=== PATIENT | female | born 1995 | race Two or more races ===

== ENCOUNTER 2020-10-16 10:13 | Emergency (ER) | payer OTHER ==
[~2020-10-16] VITALS: Ht 162.6 cm; Wt 69.9 kg
[2020-10-16 11:16] LABS: Urine Bacteria NONE SEEN /hpf (None Seen); Urine Blood Negative /uL (Negative); Urine Specific Gravity 1.025 (1.001-1.035); Urine Sperm PRESENT /hpf (None Seen); Urine WBC 2 /hpf (0 - 5)
[2020-10-16 16:20] VITALS: BP 120/76
== END 2020-10-16 16:23 | disposition home or self-care (01) ==
LOC: EDBD 10:13 → ER 10:13
DX: R10.2 Pelvic and perineal pain (principal); Z90.89 Acquired absence of other organs
CPT/HCPCS: 76830; 76856; 81001; 81025

== ENCOUNTER 2020-12-18 20:15 | Emergency (ER) | payer OTHER ==
[~2020-12-18] VITALS: Ht 160 cm; Wt 60.3 kg
[2020-12-18 21:33] LABS: Urine Bacteria NONE SEEN /hpf (None Seen); Urine Blood Negative /uL (Negative); Urine Specific Gravity 1.023 (1.001-1.035); Urine WBC <1 /hpf (0 - 5)
[2020-12-18 21:52] LABS: Basophils # (auto) 0.1 10 ^3/uL (0-0.2); Basophils % (auto) 0.6 % (0.0-2.0); Eosinophils # (auto) 0.1 10 ^3/uL (0-0.8); Eosinophils % (auto) 0.9 % (0.0-7.0); Hemoglobin 14.6 g/dL (12.2-16.2); Lymphocytes # (auto) 3.4 10 ^3/uL (0.4-5.4); Lymphocytes % (auto) 26.4 % (10.0-50.0); Mean Corpuscular Hemoglobin 31.6 pg (28.0-32.0); Mean Corpuscular Hgb Conc. 34.7 g/dL (32.0-36.0); Monocytes # (auto) 1.1 10 ^3/uL (0-1.3); Monocytes % (auto) 8.3 % (0.0-12.0); Neutrophils # (auto) 8.1 10 ^3/uL (1.6-8.6); Neutrophils % (auto) 63.8 % (37.0-80.0); Red Blood Cells 4.62 10^6/uL (4.0-5.20); Red Cell Distribution Width 12.9 % (11.8-14.3); White Blood Cell 12.8 10^3/uL (4.4-10.8)
[2020-12-18 22:05] LABS: Calcium 9.3 mg/dL (8.5-10.1)
[2020-12-18 22:08] LABS: Albumin 4.2 g/dL (3.4-5.0); BUN/Creatinine Ratio 19.4; Magnesium 2.4 mg/dL (1.6-2.6)
[2020-12-18 22:21] LABS: Bilirubin, Total 0.5 mg/dL (0.2-1.0); Total Protein 8.5 g/dL (6.4-8.2)
[2020-12-19 02:30] VITALS: BP 98/56
== END 2020-12-19 03:46 | disposition home or self-care (01) ==
LOC: ER 20:19
DX: N83.202 Unspecified ovarian cyst, left side (principal); R10.2 Pelvic and perineal pain; K59.00 Constipation, unspecified; Z33.1 Pregnant state, incidental; Z87.440 Personal history of urinary (tract) infections
CPT/HCPCS: 36415; 74176; 76830; 76856; 80053; 81001; 81025; 82150; 83690; 83735; 84702; 85025

== ENCOUNTER 2020-12-21 13:36 | Emergency (ER) | payer OTHER ==
[~2020-12-21] VITALS: Ht 160 cm; Wt 54.4 kg
[2020-12-21 14:23] VITALS: BP 130/55
[2020-12-21 15:13] LABS: Urine WBC None Seen /hpf (0 - 5)
[2020-12-21 15:28] LABS: Urine Bacteria NONE SEEN /hpf (None Seen); Urine Blood Negative /uL (Negative); Urine Specific Gravity 1.026 (1.001-1.035)
== END 2020-12-21 15:23 | disposition home or self-care (01) ==
LOC: ER 13:36
DX: O26.891 Other specified pregnancy related conditions, first trimester (principal); N83.209 Unspecified ovarian cyst, unspecified side; Z87.440 Personal history of urinary (tract) infections; Z3A.01 Less than 8 weeks gestation of pregnancy
CPT/HCPCS: 36415; 81001; 84702

== ENCOUNTER 2021-01-08 08:32 | Emergency (ER) | payer OTHER ==
[~2021-01-08] VITALS: Ht 162.6 cm; Wt 73.9 kg
[2021-01-08 09:19] VITALS: BP 107/56
[2021-01-08 09:29] LABS: Basophils # (auto) 0 10 ^3/uL (0-0.2); Basophils % (auto) 0.4 % (0.0-2.0); Eosinophils # (auto) 0 10 ^3/uL (0-0.8); Eosinophils % (auto) 0.4 % (0.0-7.0); Hematocrit 43.3 % (36.0-46.0); Hemoglobin 14.6 g/dL (12.2-16.2); Lymphocytes # (auto) 1.8 10 ^3/uL (0.4-5.4); Lymphocytes % (auto) 18.2 % (10.0-50.0); Mean Corpuscular Hemoglobin 30.7 pg (28.0-32.0); Mean Corpuscular Hgb Conc. 33.8 g/dL (32.0-36.0); Mean Corpuscular Volume 90.8 fL (80.0-100.0); Monocytes # (auto) 0.8 10 ^3/uL (0-1.3); Monocytes % (auto) 7.5 % (0.0-12.0); Neutrophils # (auto) 7.4 10 ^3/uL (1.6-8.6); Neutrophils % (auto) 73.5 % (37.0-80.0); Nucleated Red Blood Cells % 0.2 %; Red Blood Cells 4.76 10^6/uL (4.0-5.20); Red Cell Distribution Width 12.7 % (11.8-14.3); White Blood Cell 10.1 10^3/uL (4.4-10.8)
[2021-01-08 09:42] LABS: Albumin 3.9 g/dL (3.4-5.0); Calcium 9.3 mg/dL (8.5-10.1)
[2021-01-08 09:44] LABS: Bilirubin, Total 0.4 mg/dL (0.2-1.0); Total Protein 7.4 g/dL (6.4-8.2)
[2021-01-08 10:04] LABS: Urine Bacteria FEW /hpf (None Seen); Urine Blood Negative /uL (Negative); Urine Hyaline Cast FEW /lpf (0 - 2); Urine Mucus FEW (None Seen); Urine Specific Gravity 1.027 (1.001-1.035); Urine WBC 50 /hpf (0 - 5)
[2021-01-08] MEDS ORDERED: cefTRIAXone SOD 1,000 MG VL IM ONE (10:45)
[2021-01-09 08:06] LABS: RPR Non Reactive (Non Reactive)
== END 2021-01-08 11:04 | disposition home or self-care (01) ==
LOC: ER 08:32
DX: O23.41 Unspecified infection of urinary tract in pregnancy, first trimester (principal); Z3A.01 Less than 8 weeks gestation of pregnancy
CPT/HCPCS: 36415; 80053; 81001; 83690; 84702; 85025; 86592; 96372; 99283; J0696